=== PATIENT | female | born 1945 | race African-American/Black ===

== ENCOUNTER 2022-01-18 10:35 | Outpatient (CLI) | payer MEDICARE, OTHER | END 2022-01-18 10:36 | disposition home or self-care (01) | LOC: CSHMAMMO 10:35 | PROVIDERS: ATTEND Family Medicine | DX: Z12.31 Encounter for screening mammogram for malignant neoplasm of breast (principal); Z85.3 Personal history of malignant neoplasm of breast | CPT/HCPCS: 77063; 77067 ==

== ENCOUNTER 2023-01-19 09:23 | Outpatient (CLI) | payer OTHER | END 2023-01-19 09:24 | disposition home or self-care (01) | LOC: CSHMAMMO 09:23 | PROVIDERS: ATTEND Orthopaedic Surgery | DX: Z12.31 Encounter for screening mammogram for malignant neoplasm of breast (principal); Z85.3 Personal history of malignant neoplasm of breast | CPT/HCPCS: 77063; 77067 ==

== ENCOUNTER 2024-03-23 14:09 | Outpatient (CLI) | payer OTHER | END 2024-03-23 14:10 | disposition home or self-care (01) | LOC: CSHMAMMO 14:09 | PROVIDERS: ATTEND Family Medicine | DX: N64.59 Other signs and symptoms in breast (principal) | CPT/HCPCS: 76642; 77065; G0279 ==

== ENCOUNTER 2025-03-06 10:12 | Outpatient (CLI) | payer OTHER | END 2025-03-06 10:13 | disposition home or self-care (01) | LOC: CSHMAMMO 10:12 | PROVIDERS: ATTEND Family Medicine | DX: N64.59 Other signs and symptoms in breast (principal); R60.0 Localized edema; N64.89 Other specified disorders of breast | CPT/HCPCS: 76642; 77066; G0279 ==